=== PATIENT | female | born 1995 | race Caucasian/White ===

== ENCOUNTER 2016-03-24 19:33 | Emergency (ER) | payer MEDICAID ==
[~2016-03-24] VITALS: Ht 170.2 cm; Wt 69.0 kg
[~2016-03-24 19:33] MED LIST: CIPR-9 PO; PYRI200T4 PO
[2016-03-24 19:41] VITALS: BP 106/79; PULSE 93; RESP 18; TEMP 98.3; O2SAT 99
[2016-03-24] MEDS ORDERED: SODIUM CHLOR 0.9% 1000 ML INJ 1,000 ML IV SCH (20:10)
--- NOTE | 2016-03-24 20:14 | PD ---
HPI Chief Complaint: Allergic/Adverse Reaction Time Seen by Provider: 20:04 Travel History International Travel<30 days: No Contact w/Intl Traveler<30days: No Traveled to known affect area: No History of Present Illness HPI The patient is a 20-year-old female who had 2 kidney ibuprofen at about 7 PM today and immediately started getting an urticarial reaction. She denies any wheezing or shortness of breath. At about 750 she took 50 mg of Benadryl. She denies any fever, diarrhea, dysuria, frequency, urgency, shorts of breath or wheezing. She denies any history of heart disease and he denies any possibility of . PFSH Past Medical History Asthma: Yes ( CHILD PER PT AND MOM) Diminished Hearing: No Respiratory: Yes (ASTHMA) Immunizations Current: Yes Tetanus Vaccination: Unknown Influenza Vaccination: No ?: Not LMP: about Mar 09 Menopausal: No : 1 Para: 1 Past Surgical History Abdominal Surgery: No Social History Alcohol Use: Yes (SOCIALLY) Tobacco Use: Yes (/) Substance Use: No Allergies-Medications (Allergen,Severity, Reaction): Coded Allergies: Sulfa (Verified Allergy, Severe, hives, 03/24/16) RASH Reported Meds & Prescriptions Reported Meds & Active Scripts Active Pyridium (Phenazopyridine HCl) 200 Mg Tab 200 Mg PO Q8H PRN 2 Days Cipro (Ciprofloxacin HCl) 500 Mg Tab 500 Mg PO BID 7 Days Review of Systems Except as stated in HPI: all other systems reviewed are Neg Physical Exam Narrative GENERAL: The patient is alert, oriented 3 and slight apparent distress with her urticarial reaction. Her vital signs are normal. SKIN: Warm and dry. There is an urticarial reaction around the face, ears, back. The patient also has an erythematous reaction around a draining pustule which appears to be a staphylococcal infection on the right buttocks. HEAD: Atraumatic. Normocephalic. EYES: Pupils equal and round. No scleral icterus. No injection or drainage. ENT: No nasal bleeding or discharge. Mucous membranes pink and moist. NECK: Trachea midline. No JVD. CARDIOVASCULAR: Regular rate and rhythm. No murmur appreciated. RESPIRATORY: No accessory muscle use. Clear to auscultation. Breath sounds equal bilaterally. GASTROINTESTINAL: Abdomen soft, non-tender, nondistended. Hepatic and splenic margins not palpable. MUSCULOSKELETAL: No obvious deformities. No clubbing. No cyanosis. No edema. NEUROLOGICAL: Awake and alert. No obvious cranial nerve deficits. Motor grossly within normal limits. Normal speech. PSYCHIATRIC: Appropriate mood and affect; insight and judgment normal. Data Data Last Documented VS Vital Signs Date Time Temp Pulse Resp B/P Pulse Ox O2 Delivery O2 Flow Rate FiO2 03/24/16 20:35 98 Room Air 03/24/16 19:41 98.3 93 18 106/79 Orders Ecg Monitoring (03/24/16 20:10) Iv Access Insert/Monitor (03/24/16 20:10) Oximetry (03/24/16 20:10) Methylprednisolone So Succ Inj (Solumedr (03/24/16 20:15) Famotidine Inj (Pepcid Inj) (03/24/16 20:15) Sodium Chlor 0.9% 1000 Ml Inj (Ns 1000 M (03/24/16 20:10) Sodium Chloride 0.9% Flush (Ns Flush) (03/24/16 20:15) Epinephrine (1:1000) Inj (Adrenalin (1:1 (03/24/16 20:15) MDM Medical Decision Making Medical Screen Exam Complete: Yes Emergency Medical Condition: Yes Medical Record Reviewed: Yes Differential Diagnosis Urticarial reaction, cellulitis, abscess, staphylococcal infection right buttocks Narrative Course It is now 8:50 PM and the patient's symptoms have completely resolved and the urticarial rash has completely resolved. The patient, by history, is allergic to ibuprofen. Plan: The urticarial reaction will be treated with a tapered course of prednisone, Zantac and Benadryl. The staphylococcal infection will be treated with doxycycline and warm compresses. Diagnosis Primary Impression: Urticaria due to drug allergy Additional Impression: Staphylococcal infection of skin Med/Other Pt SpecificInfo: Prescription(s) given Scripts Doxycycline Hyclate 100 Mg [id number] Mg PO BID #20 CAP Ref 0 Prov:Jesús Navas MD 03/24/16 Diphenhydramine (Benadryl Allergy)25 Mg Tab25 Mg PO Q8HR PRN (ALLERGIES) #60 TAB Ref 0 Prov:Jesús Navas MD 03/24/16 Prednisone 50 Mg Tab50 Mg PO BID #12 TAB Ref 0 Prov:Jesús Navas MD 03/24/16 Ranitidine (Zantac)150 Mg [id number] Mg PO BID #60 TAB Ref 0 Prov:Jesús Navas MD 03/24/16 Disposition: 01 DISCHARGE HOME Condition: Stable Jesús Navas MD Mar 24, 2016 20:14
[2016-03-24] MEDS ORDERED: methylPREDNISolone SOD SUCC 125 MG/2 ML VIAL IVP ONE (20:15)
[2016-03-24] MEDS ORDERED: FAMOTIDINE 20 MG/2 ML VIAL IV PUSH ONE (20:15)
[2016-03-24] MEDS ORDERED: SODIUM CHLORIDE 0.9% FLUSH 5 ML FLUSH IVF PRN (20:15)
[2016-03-24] MEDS ORDERED: EPINEPHrine HCL (1:1000) 1 MG/ML VIAL IM ONE (20:15)
[2016-03-24 20:35] VITALS: O2SAT 98
[2016-03-24 20:50] VITALS: BP 100/56; PULSE 85; RESP 16; O2SAT 98
[2016-03-24] MEDS ORDERED: BENA25TA3 PO (20:56)
[2016-03-24] MEDS ORDERED: PRED50 PO (20:56)
[2016-03-24] MEDS ORDERED: ZANT150T2 PO (20:56)
[2016-03-24] MEDS ORDERED: DOXY100C PO (20:57)
[2016-03-24] MEDS ORDERED: DOXYCYCLINE HYCLATE 100 MG CAP PO ONE (21:00)
[2016-03-24] MEDS ORDERED: DOXYCYCLINE HYCLATE 100 MG TAB PO SCH ×2 (21:15)
[2016-03-24 21:36] VITALS: BP 110/56
== END 2016-03-24 21:37 | disposition home or self-care (01) ==
LOC: PHED 19:33
DX: L50.0 Allergic urticaria (principal); T39.315A Adverse effect of propionic acid derivatives, initial encounter; J45.909 Unspecified asthma, uncomplicated; L08.9 Local infection of the skin and subcutaneous tissue, unspecified; B95.8 Unspecified staphylococcus as the cause of diseases classified elsewhere; F17.210 Nicotine dependence, cigarettes, uncomplicated
CPT/HCPCS: 96361; 96372; 96374; 96375; 99282; J0171; J2930; J7030

== ENCOUNTER 2016-06-19 18:02 | Emergency (ER) | payer MEDICAID ==
[~2016-06-19] VITALS: Ht 170.2 cm; Wt 68.5 kg
[~2016-06-19 18:02] MED LIST changes: +BENA25TA3 PO; +DOXY100C PO; +PRED50 PO; +ZANT150T2 PO
[2016-06-19 18:11] VITALS: BP 114/68; PULSE 74; RESP 16; TEMP 98.5; O2SAT 98
[2016-06-19 18:38] LABS: BLOOD, URINE NEG (NEG); GLUCOSE,URINE NEG (NEG); KETONE, URINE NEG (NEG); NITRITE,URINE NEG (NEG); PH, URINE 6.5 (5.0-8.5)
[2016-06-19 18:45] LABS: BACTERIA, URINE FEW /hpf; MUCUS URINE FEW /lpf (OCC); RBC, URINE 0-3 /hpf (0-3); SQUAMOUS EPITHELIAL CELL URINE 0-5 /hpf (0-5); URINE COLOR YELLOW (YELLW/STRAW)
[2016-06-19 18:46] LABS: COMMENT (UR) CULT NOT INDICATED; CULTURE IF INDICATED CULT NOT INDICATED
--- NOTE | 2016-06-19 18:46 | PD ---
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 She is having some lower abdominal pain and is had vaginal discharge. She had a spontaneous miscarriage about a month ago. SHe is not aware of fever or chills. There is been no vomiting or diarrhea PFSH Past Medical History Asthma: Yes ( CHILD PER PT AND MOM) Diminished Hearing: No Respiratory: Yes (ASTHMA) Immunizations Current: Yes ?: Not LMP: LAST MONTH Menopausal: No : 1 Para: 1 Past Surgical History Abdominal Surgery: No Social History Alcohol Use: Yes (SOCIALLY) Tobacco Use: Yes (1/2) Substance Use: No Allergies-Medications (Allergen,Severity, Reaction): Coded Allergies: Ibuprofen (Verified Allergy, Severe, Hives, 06/19/16) Sulfa (Verified Allergy, Severe, hives, 06/19/16) RASH Reported Meds & Prescriptions Reported Meds & Active Scripts Active No Active Prescriptions or Reported Medications Review of Systems General / Constitutional: No: Fever, Chills Eyes: No: Diploplia, Blurred Vision HENT: No: Headaches Cardiovascular: No: Chest Pain or Discomfort, Palpitations Respiratory: No: Cough, Shortness of Breath Gastrointestinal: No: Nausea, Vomiting Genitourinary: Positive: Dysuria, Pelvic Pain, Discharge Musculoskeletal: No: Myalgias, Arthralgias Physical Exam Narrative GENERAL: Well-developed female SKIN: Focused skin assessment warm/dry. HEAD: Atraumatic. Normocephalic. EYES: Pupils equal and round. No scleral icterus. No injection or drainage. ENT: No nasal bleeding or discharge. Mucous membranes pink and moist. NECK: Trachea midline. No JVD. CARDIOVASCULAR: Regular rate and rhythm. No murmur appreciated. RESPIRATORY: No accessory muscle use. Clear to auscultation. Breath sounds equal bilaterally. GASTROINTESTINAL: Abdomen soft, non-tender, nondistended. Hepatic and splenic margins not palpable. Pelvic: There is a thin whitish discharge. There is some mild pain with movement of the cervix. No masses are felt MUSCULOSKELETAL: No obvious deformities. No clubbing. No cyanosis. No edema. NEUROLOGICAL: Awake and alert. No obvious cranial nerve deficits. Motor grossly within normal limits. Normal speech. PSYCHIATRIC: Appropriate mood and affect; insight and judgment normal. Data Data Last Documented VS Vital Signs Date Time Temp Pulse Resp B/P Pulse Ox O2 Delivery O2 Flow Rate FiO2 06/19/16 18:11 98.5 74 16 114/68 98 Orders Urinalysis - C+S If Indicated (06/19/16 18:07) Ed Urine Pregnancytest Poc (06/19/16 18:07) Gc And Chlamydia Pcr (06/19/16 18:43) Wet Prep Profile (06/19/16 18:43) Labs Laboratory Tests Test 06/19/16 06/19/16 18:25 19:00 Urine Color YELLOW Urine Turbidity CLEAR Urine pH 6.5 Urine Specific [place] 1.029 Urine Protein NEG mg/dL Urine Glucose (UA) NEG mg/dL Urine Ketones NEG mg/dL Urine Occult Blood NEG Urine Nitrite NEG Urine Bilirubin NEG Urine Leukocyte Esterase TRACE Urine RBC 0-3 /hpf Urine WBC 3-5 /hpf Urine Squamous Epithelial 0-5 /hpf Cells Urine Bacteria FEW /hpf Urine Mucus FEW /lpf Microscopic Urinalysis Comment CULT NOT INDICATED Clue Cells (Wet Prep) NONE SEEN Vaginal Trichomonas (Wet Prep) NONE SEEN Vaginal Yeast (Wet Prep) NONE SEEN MDM Medical Decision Making Medical Screen Exam Complete: Yes Emergency Medical Condition: Yes Medical Record Reviewed: Yes Differential Diagnosis Differential includes vaginitis, cervicitis, UTI Narrative Course Urinalysis is negative for infection. Wet prep is also negative though I am suspicious that she has bacterial vaginosis. I'm going to treat for bacterial vaginosis and cervicitis Diagnosis Primary Impression: Bacterial vaginosis Additional Impression: Cervicitis Scripts Metronidazole (Flagyl)500 Mg [id number] Mg PO TID 7 Days Ref 0 Prov:Oren Sky MD 06/19/16 Doxycycline Hyclate 100 Mg [id number] Mg PO BID #20 CAP Ref 0 Prov:Oren Sky MD 06/19/16 Disposition: 01 DISCHARGE HOME Condition: Stable Oren Sky MD Jun 19, 2016 18:46
[2016-06-19 19:20] VITALS: BP 107/54; PULSE 63; RESP 18; TEMP 98.4; O2SAT 99
[2016-06-19] MEDS ORDERED: DOXY100C PO (19:24)
[2016-06-19] MEDS ORDERED: METR-1 PO (19:24)
[2016-06-19] MEDS ORDERED: cefTRIAXone 250 MG VIAL IM ONE (19:30)
[2016-06-19 20:17] VITALS: BP 112/76; PULSE 97; RESP 18; TEMP 97.8; O2SAT 97
[2016-06-19 23:13] LABS: CHLAMYDIA PCR NOT DETECTED (NOT DETECT); NEISSERIA PCR NOT DETECTED (NOT DETECT)
== END 2016-06-19 20:21 | disposition home or self-care (01) ==
LOC: PHED 18:02
DX: N76.0 Acute vaginitis (principal); N72 Inflammatory disease of cervix uteri; J45.909 Unspecified asthma, uncomplicated; F17.200 Nicotine dependence, unspecified, uncomplicated
CPT/HCPCS: 81001; 84703; 87210; 87491; 87591; 96372; 99284; J0696

== ENCOUNTER 2016-08-17 09:23 | Emergency (ER) | payer MEDICAID ==
[~2016-08-17] VITALS: Ht 170.2 cm; Wt 70.0 kg
[~2016-08-17 09:23] MED LIST changes: -BENA25TA3 PO; -CIPR-9 PO; +METR-1 PO; -PRED50 PO; -PYRI200T4 PO; -ZANT150T2 PO
[2016-08-17 09:24] VITALS: BP 133/83; PULSE 88; RESP 15; TEMP 98.2; O2SAT 99
[2016-08-17 10:22] LABS: BACTERIA, URINE OCC /hpf; BLOOD, URINE NEG (NEG); GLUCOSE,URINE NEG (NEG); HYALINE CAST, URINE 4 /lpf (RARE); KETONE, URINE 40 mg/dL (NEG); MUCUS URINE MANY /lpf (OCC); NITRITE,URINE NEG (NEG); PH, URINE 5.5 (5.0-8.5); SQUAMOUS EPITHELIAL CELL URINE 23 /hpf (0-5); URINE COLOR YELLOW (YELLW/STRAW)
[2016-08-17] MEDS ORDERED: MACR100C2 PO (10:37)
[2016-08-17] MEDS ORDERED: PREN1CAP28 PO (10:37)
--- NOTE | 2016-08-17 10:38 | PD ---
HPI Chief Complaint: GI Complaint Time Seen by Provider: 09:59 Travel History International Travel<30 days: No Contact w/Intl Traveler<30days: No Traveled to known affect area: No History of Present Illness HPI Patient is a 21-year-old female presents emergency department with nausea vomiting and one episode of diarrhea. Been nonbloody nonbilious vomiting and nonbloody nonbilious stool. Patient denies any abdominal pain fevers vaginal bleeding vaginal discharge. She states is no possibly for . Denies and dysuria. States symptoms are mild. Last menstrual period was 2 weeks ago. PFSH Past Medical History Asthma: Yes ( CHILD PER PT AND MOM) Diminished Hearing: No Respiratory: Yes (ASTHMA) Immunizations Current: Yes ?: Unknown LMP: 5-10-17 Menopausal: No : 1 Para: 1 Past Surgical History Abdominal Surgery: No Social History Alcohol Use: Yes (SOCIALLY) Tobacco Use: No Substance Use: No Allergies-Medications (Allergen,Severity, Reaction): Coded Allergies: Ibuprofen (Verified Allergy, Severe, Hives, 08/17/16) Sulfa (Verified Allergy, Severe, hives, 08/17/16) RASH Reported Meds & Prescriptions Reported Meds & Active Scripts Active Multi + Dha 27-0.8-250 mg ( Mv & Min W/Fe Fumarat) 1 Cap Cap 1 Tab PO DAILY 30 Days Macrobid (Nitrofurantoin Monoh/Nitrofur Macro) 100 Mg Cap 100 Mg PO BID 7 Days Review of Systems Except as stated in HPI: all other systems reviewed are Neg Physical Exam Narrative GENERAL: Well-developed well-nourished no apparent distress. Sitting calmly talking on a cell phone. SKIN: Focused skin assessment warm/dry. HEAD: Atraumatic. Normocephalic. EYES: Pupils equal and round. No scleral icterus. No injection or drainage. ENT: No nasal bleeding or discharge. Mucous membranes pink and moist. NECK: Trachea midline. No JVD. CARDIOVASCULAR: Regular rate and rhythm. No murmur appreciated. RESPIRATORY: No accessory muscle use. Clear to auscultation. Breath sounds equal bilaterally. GASTROINTESTINAL: Abdomen soft, non-tender, nondistended. Hepatic and splenic margins not palpable. MUSCULOSKELETAL: No obvious deformities. No clubbing. No cyanosis. No edema. NEUROLOGICAL: Awake and alert. No obvious cranial nerve deficits. Motor grossly within normal limits. Normal speech. PSYCHIATRIC: Appropriate mood and affect; insight and judgment normal. Data Data Last Documented VS Vital Signs Date Time Temp Pulse Resp B/P Pulse Ox O2 Delivery O2 Flow Rate FiO2 08/17/16 09:24 98.2 88 15 133/83 99 Orders Ua Includes Microscopic (08/17/16 09:39) Ed Urine Pregnancytest Poc (08/17/16 09:39) Ed Poc Ultrasound (08/17/16 ) Labs Laboratory Tests Test 08/17/16 09:47 Urine Color YELLOW Urine Turbidity HAZY Urine pH 5.5 Urine Specific [place] 1.031 Urine Protein 30 mg/dL Urine Glucose (UA) NEG mg/dL Urine Ketones 40 mg/dL Urine Occult Blood NEG Urine Nitrite NEG Urine Bilirubin NEG Urine Urobilinogen 2.0 MG/DL Urine Leukocyte Esterase LARGE Urine RBC 7 /hpf Urine WBC 8 /hpf Urine Squamous Epithelial 23 /hpf Cells Urine Bacteria OCC /hpf Urine Hyaline Casts 4 /lpf Urine Mucus MANY /lpf MDM Medical Decision Making Medical Screen Exam Complete: Yes Emergency Medical Condition: Yes Differential Diagnosis , urinary tract infection, nausea vomiting, Narrative Course Patient 21-year-old female appears well and in no obvious distress. Abdomen exam is benign, she was offered pelvic exam and declined. A bedside ultrasound does show very early intrauterine . Constipation and early care including vitamins at which point the patient volunteered to me that she "was not going to keep this baby". She had that she was going to pursue elective . I discussed with her that this needs to be done sooner rather than later if she chooses to pursue it. Discussed she should still consider taking vitamins until such time as she does have elective . She does have asymptomatic bacteruria. Diagnosis Primary Impression: Nausea & vomiting Qualified Code: R11.2 - Nausea and vomiting, intractability of vomiting not specified, unspecified vomiting type Additional Impression: Asymptomatic bacteriuria Additional Instructions: If he chooses to have an you have limited time to do so under state law. Recommend he take vitamins and Macrobid for bacteriuria in her urine. If you have any abdominal pain fevers vaginal discharge or vaginal bleeding recommend you return to the emergency Department immediately. Med/Other Pt SpecificInfo: Prescription(s) given Scripts Mv & Min W/Fe Fumarat ( Multi + Dha 27-0.8-250 mg)1 Cap Cap1 Tab PO DAILY 30 Days Ref 9 Prov:Lisandro Gibbs MD 08/17/16 Nitrofurantoin Monohydrate Macrocrystals (Macrobid)100 Mg [id number] Mg PO BID 7 Days Ref 0 Prov:Lisandro Gibbs MD 08/17/16 Disposition: 01 DISCHARGE HOME Condition: Stable Lisandro Gibbs MD Aug 17, 2016 10:38
== END 2016-08-17 10:54 | disposition home or self-care (01) ==
LOC: NEPD 09:23
DX: O26.891 Other specified pregnancy related conditions, first trimester (principal); R11.2 Nausea with vomiting, unspecified; R82.71 Bacteriuria; J45.909 Unspecified asthma, uncomplicated
CPT/HCPCS: 81001; 84703; 99284

== ENCOUNTER 2017-03-05 16:02 | Emergency (ER) | payer MEDICAID ==
[~2017-03-05 16:02] MED LIST changes: -DOXY100C PO; +MACR100C2 PO; -METR-1 PO; +PREN1CAP28 PO
[2017-03-05 16:04] VITALS: BP 109/68; PULSE 62; RESP 16; TEMP 98.4; O2SAT 98
[2017-03-05] MEDS ORDERED: SODIUM CHLOR 0.9% 1000 ML INJ 1,000 ML IV SCH (17:08)
[2017-03-05] MEDS ORDERED: SODIUM CHLORIDE 0.9% FLUSH 10 ML FLUSH IVF PRN (17:15)
--- NOTE | 2017-03-05 17:16 | PD ---
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 Reports using 1 super tampon every few hours. She said she had her regular menses 1 week ago. Reports subjective fever and chills. Reports irregular bleeding like as if it is a menses. Reports cramping like her normal period. Denies dysuria, urinary frequency. Reports abnormal vaginal discharge and odor times one month. Reports unprotected sexual intercourse. Denies contraception use. Has not taken any medications or tried any treatments to alleviate his symptoms totally. Allergies to sulfa and ibuprofen. Does not have an established primary care provider. History of asthma. Has no other medical complaints. No other modifying factors or associated signs and symptoms. PFSH Past Medical History Asthma: Yes ( CHILD PER PT AND MOM) Diminished Hearing: No Respiratory: Yes (ASTHMA) Immunizations Current: Yes Tetanus Vaccination: < 5 Years ?: Not LMP: 02/26/2017 Menopausal: No : 1 Para: 1 Past Surgical History Surgical History: No Previous Surgery Abdominal Surgery: No Social History Alcohol Use: Yes (SOCIALLY) Tobacco Use: No Substance Use: No Allergies-Medications (Allergen,Severity, Reaction): Coded Allergies: Sulfa (Sulfonamide Antibiotics) (Unverified Allergy, Severe, hives, ) RASH ibuprofen (Unverified Allergy, Severe, Hives, 03/05/17) Reported Meds & Prescriptions Reported Meds & Active Scripts Active Review of Systems Except as stated in HPI: all other systems reviewed are Neg Physical Exam Narrative GENERAL: Well-nourished, well-developed female patient, in no acute distress; afebrile, nontoxic-appearing SKIN: Warm and dry. HEAD: Atraumatic. Normocephalic. EYES: Pupils equal and round. No scleral icterus. No injection or drainage. ENT: Mucous membranes pink and moist. NECK: Trachea midline. No lymphadenopathy. CARDIOVASCULAR: Regular rate and rhythm. No murmur appreciated. RESPIRATORY: No accessory muscle use. Clear to auscultation. Breath sounds equal bilaterally. GASTROINTESTINAL: Abdomen soft, non-tender, nondistended. Bilateral pelvic region nontender to palpation. Hepatic and splenic margins not palpable. No guarding, rigidity, rebound tenderness. PELVIC: Exam done in the presence of a nurse. Speculum exam reveals nonedematous and nonerythematous cervix with moderate amount of dark red discharge. Bimanual exam reveals no palpable masses or adnexa tenderness, no uterine tenderness. No cervical motion tenderness. BACK: No CVA tenderness. MUSCULOSKELETAL: No obvious deformities. No clubbing. No cyanosis. No edema. NEUROLOGICAL: Awake and alert. No obvious cranial nerve deficits. Motor grossly within normal limits. Normal speech. PSYCHIATRIC: Appropriate mood and affect; insight and judgment normal. Data Data Last Documented VS Vital Signs Date Time Temp Pulse Resp B/P (MAP) Pulse Ox O2 Delivery O2 Flow Rate FiO2 03/05/17 18:42 03/05/17 16:04 98.4 62 16 98 Room Air Orders Orders Complete Blood Count With Diff (03/05/17 17:08) Basic Metabolic Panel (Bmp) (03/05/17 17:08) Gc And Chlamydia Pcr (03/05/17 17:08) Wet Prep Profile (03/05/17 17:08) Urinalysis - C+S If Indicated (03/05/17 17:08) Iv Access Insert/Monitor (03/05/17 17:08) Sodium Chloride 0.9% Flush (Ns Flush) (03/05/17 17:15) Ed Urine Pregnancytest Poc (03/05/17 17:08) Influenzae A/B Antigen (03/05/17 17:08) Sodium Chlor 0.9% 1000 Ml Inj (Ns 1000 M (03/05/17 17:08) Ed Discharge Order (03/05/17 18:36) Labs Laboratory Tests Test 03/05/17 17:15 03/05/17 18:18 White Blood Count 5.7 TH/MM3 Red Blood Count 4.58 MIL/MM3 Hemoglobin 13.3 GM/DL Hematocrit 39.9 % Mean Corpuscular Volume 87.1 FL Mean Corpuscular Hemoglobin 29.1 PG Mean Corpuscular Hemoglobin Concent 33.4 % Red Cell Distribution Width 14.0 % Platelet Count 158 TH/MM3 Mean Platelet Volume 9.5 FL Neutrophils (%) (Auto) 62.7 % Lymphocytes (%) (Auto) 23.9 % Monocytes (%) (Auto) 11.5 % Eosinophils (%) (Auto) 1.5 % Basophils (%) (Auto) 0.4 % Neutrophils # (Auto) 3.6 TH/MM3 Lymphocytes # (Auto) 1.4 TH/MM3 Monocytes # (Auto) 0.7 TH/MM3 Eosinophils # (Auto) 0.1 TH/MM3 Basophils # (Auto) 0.0 TH/MM3 CBC Comment DIFF FINAL Differential Comment Urine Color YELLOW Urine Turbidity HAZY Urine pH 5.5 Urine Specific [place] 1.024 Urine Protein TRACE mg/dL Urine Glucose (UA) NEG mg/dL Urine Ketones NEG mg/dL Urine Occult Blood MOD Urine Nitrite NEG Urine Bilirubin NEG Urine Urobilinogen 2.0 MG/DL Urine Leukocyte Esterase MOD Urine RBC 2 /hpf Urine WBC 2 /hpf Urine Squamous Epithelial Cells 6 /hpf Urine Bacteria RARE /hpf Urine Mucus FEW /lpf Microscopic Urinalysis Comment CULT NOT INDICATED Blood Urea Nitrogen 13 MG/DL Creatinine 0.59 MG/DL Random Glucose 77 MG/DL Calcium Level 8.6 MG/DL Sodium Level 140 MEQ/L Potassium Level 3.6 MEQ/L Chloride Level 109 MEQ/L Carbon Dioxide Level 26.6 MEQ/L Anion Gap 4 MEQ/L Estimat Glomerular Filtration Rate 129 ML/MIN Clue Cells (Wet Prep) NONE SEEN Vaginal Trichomonas (Wet Prep) NONE SEEN Vaginal Yeast (Wet Prep) NONE SEEN MDM Medical Decision Making Medical Screen Exam Complete: Yes Emergency Medical Condition: Yes Medical Record Reviewed: Yes Differential Diagnosis Cervicitis, UTI, chlamydia, gonorrhea, vaginal bleeding, ruptured ovarian cyst Narrative Course 21-year-old female with vaginal bleeding that started today. Menses was on February 26. IV site obtained. CBC, BMP, UPT, urinalysis, wet prep, chlamydia , gonorrhea ordered. UPT negative. 1809: Influenza negative. CBC unremarkable. Urinalysis without signs of infection. 1834: Vaginal encopresis, clue cells, Trichomonas not detected. I suspect chlamydia or gonorrhea and will not treat empirically at this time. Instructed patient to follow up with gynecology. Instructed patient to follow up with primary care provider. Patient verbalizes understanding and agreement with treatment plan. Patient is medically cleared and stable for discharge. Discussed reasons to return to the emergency department. Patient agrees with treatment plan. The patients vital signs are stable and the patient is stable for outpatient follow-up and treatment. Patient discharged home, stable and in no acute distress. 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
[2017-03-05 17:55] LABS: AUTOMATED NEUTROPHIL # 3.6 TH/MM3 (1.8-7.7); BACTERIA, URINE RARE /hpf; BASOPHIL % 0.4 % (0.0-2.0); BILIRUBIN, URINE NEG (NEG); BLOOD, URINE MOD (NEG); EOSINOPHIL # 0.1 TH/MM3 (0-0.4); EOSINOPHIL % 1.5 % (0.0-4.0); GLUCOSE,URINE NEG (NEG); HEMATOCRIT 39.9 % (35.0-46.0); HEMOGLOBIN 13.3 GM/DL (11.6-15.3); KETONE, URINE NEG (NEG); LYMPH % 23.9 % (9.0-44.0); LYMPHOCYTE # 1.4 TH/MM3 (1.0-4.8); MEAN CELL VOLUME 87.1 FL (80.0-100.0); MEAN CORPUSCULAR HEMOGLOBIN 29.1 PG (27.0-34.0); MEAN CORPUSCULAR HGB CONC 33.4 % (32.0-36.0); MEAN PLATELET VOLUME 9.5 FL (7.0-11.0); MONO % 11.5 % (0.0-8.0); MONOCYTE # 0.7 TH/MM3 (0-0.9); MUCUS URINE FEW /lpf (OCC); NEUT % 62.7 % (16.0-70.0); NITRITE,URINE NEG (NEG); PH, URINE 5.5 (5.0-8.5); PLATELET COUNT 158 TH/MM3 (150-450); RED BLOOD COUNT 4.58 MIL/MM3 (4.00-5.30); SQUAMOUS EPITHELIAL CELL URINE 6 /hpf (0-5); URINE COLOR YELLOW (YELLW/STRAW); URINE LEUKOCYTE ESTERASE MOD (NEG); WHITE BLOOD COUNT 5.7 TH/MM3 (4.0-11.0)
[2017-03-05 18:22] LABS: BICARBONATE 26.6 MEQ/L (21.0-32.0); CALCIUM 8.6 MG/DL (8.5-10.1); CREATININE 0.59 MG/DL (0.50-1.00)
== END 2017-03-05 19:10 | disposition home or self-care (01) ==
LOC: NEPD 16:02
DX: N93.9 Abnormal uterine and vaginal bleeding, unspecified (principal)
CPT/HCPCS: 80048; 81001; 84703; 85025; 87210; 87491; 87591; 87804; 99284; J7030